=== PATIENT | female | born 1985 | race Caucasian/White ===

== ENCOUNTER 2017-05-20 10:49 | Emergency (ER) | payer OTHER, MEDICAID ==
[~2017-05-20] VITALS: Ht 175.3 cm; Wt 51.7 kg
[~2017-05-20 10:49] MED LIST: ACYCLOVIR 800800 MG PO; AMOXIL 875 MG875 M1 PO; AZITHROMYCIN 2250 MG PO; CHROMAGEN CAPSU1 CAP PO; DARVOCET-N 1001 EACH PO; FLAGYL500 MG PO; HYDROCODONE-AP1 EAC6 PO; IBUPROFEN 600600 M1 PO; IBUPROFEN 800800 M1 PO; MACROBID 100 M100 M1 PO; MEDROLDOSEPACK PO; MIRENA; NOHOMEMEDICATIONS; NORCO 5-325 TA1 EACH PO; PENICILLIN V P500 MG PO; PERMETHRIN60 GM TOP; TRIAMCINOLONE A80 G2 TOP; VALIUM5 MG PO; ZOFRAN ODT4 MG PO
[2017-05-20 10:53] VITALS: BP 137/89
[2017-05-20] MEDS ORDERED: AMOXICILLIN 50500 MG PO (11:04)
== END 2017-05-20 11:10 | disposition home or self-care (01) ==
LOC: M.ERS 10:49
DX: J02.9 Acute pharyngitis, unspecified (principal); F17.210 Nicotine dependence, cigarettes, uncomplicated; Z88.8 Allergy status to other drugs, medicaments and biological substances

== ENCOUNTER 2017-08-10 08:25 | Emergency (ER) | payer OTHER, MEDICAID ==
[~2017-08-10] VITALS: Ht 175.3 cm; Wt 51.7 kg
[~2017-08-10 08:25] MED LIST changes: +AMOXICILLIN 50500 MG PO
[2017-08-10] MEDS ORDERED: BIRTH CONTROL PO (08:36)
[2017-08-10 10:05] LABS: AMP/METHAMP Negative (Negative); BARBITURATES Negative (Negative); BENZODIAZEPINES Negative (Negative); COCAINE Negative (Negative); METHADONE Negative (Negative); OPIATES Negative (Negative); PCP Negative (Negative); THC POSITIVE (Negative)
[2017-08-10 10:08] VITALS: BP 135/90
== END 2017-08-10 10:09 | disposition home or self-care (01) ==
LOC: M.ERS 08:25
PROVIDERS: Emergency Medicine
DX: T50.991A Poisoning by other drugs, medicaments and biological substances, accidental (unintentional), initial encounter (principal); S80.02XA Contusion of left knee, initial encounter; S70.12XA Contusion of left thigh, initial encounter; S90.32XA Contusion of left foot, initial encounter; T74.21XA Adult sexual abuse, confirmed, initial encounter; F17.210 Nicotine dependence, cigarettes, uncomplicated; Z86.73 Personal history of transient ischemic attack (TIA), and cerebral infarction without residual deficits; Z88.6 Allergy status to analgesic agent; Y92.89 Other specified places as the place of occurrence of the external cause; Y07.410 Brother, perpetrator of maltreatment and neglect

== ENCOUNTER 2018-09-27 16:59 | Emergency (ER) | payer OTHER, MEDICAID ==
[~2018-09-27] VITALS: Ht 175.3 cm; Wt 51.7 kg
[~2018-09-27 16:59] MED LIST changes: +BIRTH CONTROL PO
[2018-09-27] MEDS ORDERED: VALACYCLOVIR500 MG PO (18:00)
[2018-09-27] MEDS ORDERED: PREDNISONE 5 MG5 MG PO (18:00)
[2018-09-27 18:20] VITALS: BP 141/96
== END 2018-09-27 18:20 | disposition home or self-care (01) ==
LOC: M.ERS 16:59
DX: G51.0 Bell's palsy (principal); F17.210 Nicotine dependence, cigarettes, uncomplicated; Z88.6 Allergy status to analgesic agent; Z86.73 Personal history of transient ischemic attack (TIA), and cerebral infarction without residual deficits